=== PATIENT | female | born 1975 | race Caucasian/White ===

== ENCOUNTER 2024-08-23 10:59 | Emergency (ER) | payer SELFPAY ==
[2024-08-23 11:07] VITALS: BP 153/90
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
[2024-08-23 15:26] VITALS: BP 123/83
== END 2024-08-23 15:41 | disposition home or self-care (01) ==
LOC: EMR 10:59
PROVIDERS: EMERGENCY PHYSICIAN Emergency Medicine
DX: S16.1XXA Strain of muscle, fascia and tendon at neck level, initial encounter (principal); V49.40XA Driver injured in collision with unspecified motor vehicles in traffic accident, initial encounter
CPT/HCPCS: 99284; 70450; 72125

== ENCOUNTER 2025-06-23 09:54 | Emergency (ER) | payer SELFPAY ==
[2025-06-23 09:55] VITALS: BP 113/80
--- NOTE | 2025-06-23 10:30 | ED.GENMED ---
History of Present Illness
General
Chief Complaint: Abdominal Pain
Source: patient
Exam Limitations: none
Time Seen by Provider: 06/23/25 10:15
History of Present Illness
History of Present Illness:
50yoF with history of hyperlipidemia not on medication, prior cholecystectomy, and prior appendectomy presenting for evaluation of flank pain. Patient has been having pain in her right flank over the past few days. She denies any trauma or
inciting incident. Overnight, patient was sweating profusely and started to experience nausea, vomiting, and diarrhea. She believes she had a fever but does not have a thermometer so was unable to check. She states it felt like she was dying.
Pain is now radiating to the lower abdomen and into her legs. She was seen at urgent care prior to arrival and was sent to the ED for a possible kidney stone. She denies any chest pain, shortness of breath, dysuria, hematuria, sick contacts,
suspicious food intake, recent travel, recent antibiotics.
Phy Exam
General Physical Exam
General Presentation: well appearing and no apparent distress
General Skin: warm and dry
General Habitus: normal
General Mental: alert
ENT Exam
ENT Exam: normocephalic
Cardiovascular Exam
Cardiovascular Exam: regular rate/rhythm and no murmur
Pulmonary Exam
Pulmonary Exam: lungs clear, no respiratory distress, no rales, no crackles, no rhonchi and no wheezing
Gastrointestinal Exam
Gastrointestinal Exam: soft, non distended, no cva tenderness and other (+Tenderness in RUQ. Abdomen soft, non-distended. No rebound or guarding.)
Neurological Exam
Neurological Exam: alert
[place] Coma Scale
Eye Opening: Spontaneous
Verbal Response: Oriented
Motor Response: Obeys Commands
GCS Total Score: 15
Skin Exam
Skin Exam: normal color and warm/dry
Psychiatric Exam
Psychiatric Exam: normal mood/affect
Course
Orders/Labs/Results
Orders:
Orders
06/23/25 10:28
Electrocardiogram (*1) Urgent
Reason for Study: Abdominal Pain
EKG- Treatment ONCE
0.9% Sodium Chloride 1000 ml [Nss] 1,000 ml IV BOLUS
06/23/25 10:29
CT Abd/pel Without Iv Or Oral Urgent
Comment:
Reason For Exam: R flank pain
06/23/25 10:42
Complete Blood Count/With Diff Urgent
Comprehensive Metabolic Panel Urgent
Lipase Urgent
Troponin I Urgent
06/23/25 11:50
Urinalysis Reflex To Culture Urgent
Date Specimen was Collected: 06/23/25
Time Specimen was Collected: 11:49
Urine Microscopic Reflex Cult Urgent
06/23/25 12:35
Ketorolac [Toradol] 15 mg IV NOW STA
06/23/25 14:[address] Non Medication Order As Directed
Physician Order: PO challenge
06/23/25 14:36
Ketorolac [Toradol] 15 mg IV NOW STA
Ondansetron Injectable [Zofran] 4 mg IV NOW STA
Abnormal Lab Results
06/23/25 06/23/25
10:42 11:50
MCH 31.4 H pg
(27.0-31.0)
RDW 11.3 L %
(11.5-14.5)
Absolute Lymphs (auto) 0.6 L 10^3/uL
(1.2-3.4)
Neutrophils % 86.6 H %
(42.2-75.2)
Lymphocytes % 7.5 L %
(20.5-51.1)
Chloride 109 H mmol/L
(98-107)
Glucose 112 H mg/dl
(70-99)
Urine Bacteria (Reflex) Few A
(Negative)
Urine Albumin (Reflex) 1+ A
(Neg - Trace)
06/23/25 10:42
06/23/25 10:42
Vital Signs
Initial and Last Documented VS:
Initial Vital Signs
Temp Pulse Resp BP Pulse Ox
98.2 F 114 20 113/80 99
06/23/25 09:55 06/23/25 09:55 06/23/25 09:55 06/23/25 09:55 06/23/25 09:55
Last Documented Vital Signs
Temp Pulse Resp BP Pulse Ox
98.2 F 84 14 121/83 96
06/23/25 09:55 06/23/25 11:30 06/23/25 11:30 06/23/25 11:00 06/23/25 11:30
MDM/Problems Addressed
Differential Diagnosis Includes:
50yoF here with R flank pain x several days. Started to radiate anteriorly this morning with vomiting/diarrhea. Hx of appendectomy and cholecystectomy. HR 114 in triage, remainder of vitals stable. She is non-toxic appearing. No signs of peritonitis
on abdominal exam. Differential diagnosis includes but is not limited to: kidney stone, gastroenteritis, colitis, choledocholithiasis, musculoskeletal
Initial ED plan: Check abdominal labs, troponin/EKG, UA, and CT abdomen without contrast. IV fluid bolus.
*Pulse Oximetry
SaO2: 99
Oxygen Mode of Delivery: Room air
Patient hypoxic: no (99%)
*EKG
Interpreted by ED Provider?: Yes
EKG Intrepretation Date: 06/23/25
Heart Rate: 86
Rate: normal
Rhythm: sinus
Treece: normal axis
Interval: normal interval
QRS Pattern: low voltage
Ischemia: no ischemia
*Critical Care Note
Total Time (30-74mins, 75-104mins- exclusive of procedures): Not Applicable
Update Note
Update Note:
Labs unremarkable including normal white count, electrolytes, renal function. UA bland. CT shows 'Mild fluid distention of the duodenal sweep, with relative collapse of the duodenum traversing the midline. The possibility of SMA syndrome may be
considered in the proper clinical setting. Otherwise, no significant bowel abnormality.' Patient denies any weight loss. This was discussed with general surgery, Dr. Jacobson, who states this is not an inpatient issue and he is able to see the
patient in the office in 2 days. Patient tolerating PO intake and feels well for discharge. Prescription provided for Zofran and ED return precautions reviewed. She was discharged in stable condition.
ED Attending Note
-
Portions of this chart may have been created with voice recognition software.� Occasional wrong word or��sound alike� substitutions may have occurred due to the inherent limitations of voice recognition software.
Discharge Plan
Departure
Patient Disposition: Home (Routine Discharge)
Date of Disposition: 06/23/25
Time of Disposition: 15:24
Patient with high blood pressure during this ER visit?: No
Discharge Problem:
Nausea, vomiting, and diarrhea, Abdominal pain, Abnormal CT of the abdomen
Instructions: Abdominal Pain
Prescriptions:
New
ondansetron 4 mg tablet,disintegrating
4 mg PO Q6H PRN (Reason: nausea and vomiting) Qty: 20 0RF
Referrals:
Marbin Jacobson MD [Active, Surgical]
NONE,* [Family Provider, Internal Medicine]
Activity Restrictions/Additional Instructions:
Take Zofran as needed for nausea. Eat a bland diet until symptoms improve.
Please follow-up with general surgery. Return to the ER with any new or worsening symptoms.
Interventions
Interventions:
*Risk Screen - Suicide Last Done: 06/23/25 09:55
*General Assessment Last Done: 06/23/25 09:55
*Neglect/Abuse Screening Last Done: 06/23/25 10:49
*Nursing Disposition Last Done: 06/23/25 15:34
VT-Kfsmkr-Lhnsiypflw Assessment Last Done: 06/23/25 10:49
Discharge Date and Time
Discharge Date/Time: 06/23/25 15:34
Print Language: IRISH
[2025-06-23 10:45] VITALS: BP 110/72
[2025-06-23] MEDS: NSS 1000 IV (10:46)
[2025-06-23 10:47] VITALS: BMI 28.0
[2025-06-23 10:53] LABS: Hematocrit 43.3 % (37.0-47.0); Hemoglobin 14.9 g/dL (12.0-16.0); Mean Corp Hgb Conc. 34.4 g/dL (33.0-37.0); Mean Corpuscular Volume 91.4 fL (81.0-99.0); Nucleated Red Blood Cells % 0 %; Platelet Count 278 10^3/uL (130-400); Red Cell Dist. Width 11.3 % (11.5-14.5)
[2025-06-23 11:00] VITALS: BP 121/83
[2025-06-23 11:17] LABS: Troponin I < 0.012 ng/ml
[2025-06-23 11:19] LABS: ALT (SGPT) 23 U/L (0-35); AST (SGOT) 26 U/L (14-36); Albumin 4.8 g/dl (3.5-5.0); Alkaline Phosphatase 52 U/L (38-126); Blood Urea Nitrogen 16 mg/dl (7-17); Calcium 9.7 mg/dl (8.4-10.2); Carbon Dioxide 25 mmol/L (22-30); Chloride 109 mmol/L (98-107); Estimated Creatinine Clearance 81 ml/min; Glucose 112 mg/dl (70-99); Lipase 100 U/L (23-300); Potassium 4.5 mmol/L (3.5-5.1); Sodium 140 mmol/L (135-145); Total Protein 7.4 g/dl (6.3-8.2); eGFR > 60.00
[2025-06-23 12:01] LABS: Urine Character Clear (Clear)
[2025-06-23 12:10] LABS: Urine Squamous Cell 16-20 /LPF (Few); Urine Urothelial Cell 0-2 /LPF (FEW)
[2025-06-23 12:11] LABS: Urine Red Blood Cell 0-2 /HPF (0-2)
[2025-06-23] MEDS: TORADOL 15 MG IV ×2 (12:38→14:54)
[2025-06-23] MEDS: ZOFRAN 4 MG IV (14:54)
== END 2025-06-23 15:34 | disposition home or self-care (01) ==
LOC: EMR 09:54
PROVIDERS: Physician Assistant; EMERGENCY PHYSICIAN Emergency Medicine
DX: R11.2 Nausea with vomiting, unspecified (principal); R19.7 Diarrhea, unspecified; R10.9 Unspecified abdominal pain; R93.5 Abnormal findings on diagnostic imaging of other abdominal regions, including retroperitoneum; E78.5 Hyperlipidemia, unspecified; Z90.49 Acquired absence of other specified parts of digestive tract
CPT/HCPCS: 96374; 96375; 96361; 99284; 96376; 74176; 80053; 81003; 81015; 83690; 84484; 85025; 93005